=== PATIENT | female | born 1965 | race Caucasian/White ===

== ENCOUNTER 2017-08-03 07:53 | Emergency (ER) | payer BC ==
[~2017-08-03] VITALS: Ht 167.6 cm; Wt 107.2 kg
[~2017-08-03 07:53] MED LIST: ARIP300S IM; BUPR-166 PO; IBUP-1542 PO; LIRA0.6P SQ; LOSA25TA5 PO; METF500T4 PO; TRAM50TA2 PO
[2017-08-03 07:55] VITALS: Ht 167.6 cm; Wt 107.2 kg
--- NOTE | 2017-08-03 08:42 | ERD ---
ER Documentation Chief Complaint Chief Complaint bright red blood w/urination w/pelvic pressure since last night HPI 52y/o female patient with history of hypertension and type 2 diabetes mellitus, presents to the emergency department c/o dysuria and hematuria, that started 2 days ago. pain is sharp and burning urination, rated 6/10, radiated to pelvic area. The symptoms are associated with general malaise. Denies fever, chills, N/ V/D. No recent history of previous episodes. Treatment attempted: None ROS SYSTEMIC symptoms: no fever, chills, no night sweats, no weight loss EYE symptoms: No blurred vision, no eye discharge OTOLARYNGEAL symptoms: No hearing loss. No ear pain, no sore throat CARDIOVASCULAR symptoms: No chest pain or discomfort, no palpitations. PULMONARY symptoms: No dyspnea, no cough, no wheezing. GASTROINTESTINAL symptoms: No abdominal pain, no nausea, no vomiting, no diarrhea MUSCULOSKELETAL symptoms: No arthralgias, no muscle aches. NEUROLOGY symptoms: No confusion, no syncope, no numbness or tingling. SKIN no rashes All systems reviewed and are negative except as per history of present illness. Medications Home Meds Active Scripts Phenazopyridine Hcl* (Pyridium*) 200 Mg Tab, 200 MG PO TID, #14 TAB Prov:ANNA SR MD 08/03/17 Hydrocodone/Acetaminophen (Hiawatha 5-325 Tablet) 1 Each Tablet, 1 EACH PO TID Y for SEVERE PAIN LEVEL 7-10 for 7 Days, #14 TAB Prov:ANNA SR MD 08/03/17 Ciprofloxacin Hcl* (Ciprofloxacin Hcl*) 250 Mg Tablet, 250 MG PO BID for 7 Days , #14 TAB Prov:ANNA SR MD 08/03/17 Tramadol HCl (Tramadol HCl) 50 Mg Tablet, 50 MG PO Q6 Y for PAIN, #20 TAB Prov:CHONG RODRÍGUEZ NP 04/05/16 Reported Medications Aripiprazole* (Abilify* Maintena) Unknown Strength Suser.vial, IM Q28D, VIAL 04/05/16 Bupropion Hcl* (Wellbutrin*) Unknown Strength Tab, PO TID, TAB 04/05/16 Losartan Potassium* (Losartan Potassium*) Unknown Strength Tablet, PO BID, TAB 04/05/16 Metformin* (Glucophage*) Unknown Strength Tab, PO BID, #20 TAB 04/05/16 Liraglutide (Victoza 2-Juan F) Unknown Strength Pen.injctr, SQ DAILY, SYR 04/05/16 Ibuprofen* (Motrin*) Unknown Strength Tab, PO Q6, #30 TAB 04/05/16 Allergies Allergies: Coded Allergies: No Known Allergy (Unverified , 08/03/17) PMhx/Soc The patient reports history of hypertension, diabetes mellitus and h hypothyroidism History of Surgery: Yes (hysterectomy) Anesthesia Reaction: No Hx Neurological Disorder: No Hx Respiratory Disorders: No Hx Cardiac Disorders: Yes (htn) Hx Psychiatric Problems: No Hx Miscellaneous Medical Probl: Yes (diabetes; thyroid problems) Hx Alcohol Use: No Hx Substance Use: No Smoking Status: Never smoker Physical Exam Vitals Vital Signs Date Time Temp Pulse Resp B/P Pulse Ox O2 Delivery O2 Flow Rate FiO2 08/03/17 07:55 98.6 74 18 189/95 100 Physical Exam Patient is in mild distress due to pain, vital signs showed elevated blood pressure, the patient did not take her medications today. Alert and fully oriented. EYES: PERRLA, EOMI, Sclera and conjunctiva appear normal. EARS: Canals clear, tympanic membranes WNL THROAT: Normal oropharynx. NECK: Supple, No lymphadenopathy. Full ROM without pain or tenderness. HEART: RRR, no rubs, murmurs, clicks or gallops. LUNGS: Clear to auscultation. ABDOMEN: Soft, mild tenderness in suprapubic area. No peritoneal signs EXTREMITIES: No edema bilaterally. MUSC: Full ROM, no deformity, normal back exam, no CVA tenderness Results 24 hrs Laboratory Tests Test 08/03/17 08:20 08/03/17 09:30 Urine Color RED Urine Clarity CLOUDY Urine pH 6.0 Urine Specific [place] 1.021 Urine Ketones NEGATIVEmg/dL Urine Nitrite NEGATIVEmg/dL Urine Bilirubin NEGATIVEmg/dL Urine Urobilinogen NEGATIVEmg/dL Urine Leukocyte Esterase 2+May/ul Urine Microscopic RBC > 182/HPF Urine Microscopic WBC 115/HPF Urine Squamous Epithelial Cells FEW/HPF Urine Bacteria FEW/HPF Urine Mucus FEW/HPF Urine Yeast (Budding) FEW/HPF Urine Hemoglobin 3+mg/dL Urine Glucose 2+mg/dL Urine Total Protein 2+mg/dl Urine Test Pending Bedside Urine pH (LAB) 6.0 Bedside Urine Protein (LAB) 2+ Bedside Urine Glucose (UA) 0.1% Bedside Urine Ketones (LAB) Negative Bedside Urine Blood 3+ Bedside Urine Nitrite (LAB) Negative Bedside Urine Leukocyte Esterase (L 1+ Procedures/MDM 52y/o female patient with history of diabetes, hypertension and hypothyroidism, presents to the ED c/o dysuria and hematuria for 3 days. Vital signs showed elevated blood pressure, the patient did not take her medications today and she refers that she is in a lot of discomfort due to dysuria, Physical exam unremarkable. Differential diagnosis include but not limited to: Cystitis, infectious versus interstitial versus autoimmune, UTI, pyelonephritis, urolithiasis, vaginal bleeding. Pertinent Data: UA: Consistent with urinary tract infection, the urine will be sent for culture. Physical examination and clinical presentation consistent most likely with urinary tract infection. During the ED course the patient remained stable no new complaints. Results and medical impression discussed with patient who agrees with management. The patient will be discharged home with a Rx for ciprofloxacin for 7 days, Hiawatha and Pyridium as needed for pain Side effects of prescribed narcotic medications (drowsiness, constipation, habituation) were reviewed. If symptoms persist, worsen or new symptoms develop, then patient is instructed to follow-up with the primary care provider. If the patient is unable to see the primary care provider, then return to the ED immediately. Departure Diagnosis: Primary Impression: UTI (urinary tract infection) Condition: Stable Additional Instructions: Thank you very much for allowing us to participate in your care. Your health and safety is our top priority at [facility]. Have prescriptions filled and follow precisely the directions on the label. Follow-up with primary care provider during the next 4 days and bring all the information and medications prescribed. If illness has not improved in 2 days, then make an appointment with primary care provider. If the provider is unavailable, return to the Emergency Department immediately. ANNA SR MD Aug 03, 2017 08:42
[2017-08-03] MEDS ORDERED: HYDR-906 PO (09:38)
[2017-08-03] MEDS ORDERED: PHEN-538 PO (09:38)
[2017-08-03] MEDS ORDERED: CIPR-193 PO (09:38)
== END 2017-08-03 09:55 | disposition home or self-care (01) ==
LOC: FTE 07:53
DX: N39.0 Urinary tract infection, site not specified (principal); I10 Essential (primary) hypertension; E11.9 Type 2 diabetes mellitus without complications; E03.9 Hypothyroidism, unspecified; R10.2 Pelvic and perineal pain; Z79.84 Long term (current) use of oral hypoglycemic drugs
CPT/HCPCS: 81001; 84703; 87086; Z7502; 81003; 99283

== ENCOUNTER 2018-01-29 20:18 | Emergency (ER) | END 2018-01-31 11:35 | disposition home or self-care (01) ==

== ENCOUNTER 2018-02-21 13:10 | Emergency (ER) | END 2018-02-21 17:03 | disposition home or self-care (01) ==

== ENCOUNTER → 2018-10-07 | Outpatient (CLI) | payer BC ==
[~2018-10-07] MED LIST changes: -ARIP300S IM; +ASPI-817 PO; +ATOR40TA68 PO; -BUPR-166 PO; +BUPR300T4 PO; +CYCL10TA7 PO; +ERGO500013 PO; +FLUO20CA22 PO; +GABA300C16 PO; -IBUP-1542 PO; +IBUP-1544 PO; +IBUP-1561 PO; +INSU100I33 SC; +INSU100V3 IJ; +ISOS30TA67 PO; +LEVO25TA6 PO; -LIRA0.6P SQ; +LOSA100T15 PO; -LOSA25TA5 PO; +MECL-77 PO; -METF500T4 PO; +METF850T13 PO; +OXYB5TAB7 PO; +PYRI50CA PO; +QUET25TA33 PO; +TRAM50TA PO; -TRAM50TA2 PO
== END | disposition home or self-care (01) ==
LOC: LAB 10:09
PROVIDERS: ATTEND Internal Medicine Interventional Cardiology
DX: R89.9 Unspecified abnormal finding in specimens from other organs, systems and tissues (principal); R07.9 Chest pain, unspecified; R06.02 Shortness of breath
CPT/HCPCS: 80048

== ENCOUNTER → 2018-10-17 | Outpatient (CLI) | payer BC ==
[~2018-10-17] MED LIST changes: +IOHEXOL 100 ML ONE; +IOHEXOL 350MG/ML 50 ML BTL ONE; +METOPROLOL 5 MG INJ ONE; +NITROGLYCERIN AEROSOL (4.9 GM) ONE; +SOD CHLORIDE 0.9% 100 ML ONE
== END | disposition home or self-care (01) ==
LOC: C/S 08:33
PROVIDERS: ATTEND Internal Medicine Interventional Cardiology
DX: R94.39 Abnormal result of other cardiovascular function study (principal); R07.9 Chest pain, unspecified; R06.02 Shortness of breath
CPT/HCPCS: 75571; 75574; Q9967; Z7610

== ENCOUNTER 2019-05-19 20:09 | Emergency (ER) | payer BC ==
[~2019-05-19] VITALS: Ht 170.2 cm; Wt 110.0 kg
[~2019-05-19 20:09] MED LIST changes: +HYDR-4011 PO; -IOHEXOL 100 ML ONE; -IOHEXOL 350MG/ML 50 ML BTL ONE; +LORA1TAB PO; -METOPROLOL 5 MG INJ ONE; -NITROGLYCERIN AEROSOL (4.9 GM) ONE; -SOD CHLORIDE 0.9% 100 ML ONE
[2019-05-19 20:14] VITALS: Ht 170.2 cm; Wt 110.0 kg
[2019-05-19] MEDS ORDERED: LORAZEPAM 1 MG TAB PO ONE (21:00)
[2019-05-19] MEDS ORDERED: ACETAMINOPHEN 325 MG TAB PO ONE (21:00)
[2019-05-19 21:35] VITALS: BP 128/72; PULSE 75; RESP 17
== END 2019-05-19 21:35 | disposition home or self-care (01) ==
LOC: FTE 20:09
DX: F41.9 Anxiety disorder, unspecified (principal); E11.9 Type 2 diabetes mellitus without complications; I10 Essential (primary) hypertension; M54.2 Cervicalgia; F17.210 Nicotine dependence, cigarettes, uncomplicated; Z79.4 Long term (current) use of insulin; Z79.82 Long term (current) use of aspirin
CPT/HCPCS: Z7502; Z7610; 99283